=== PATIENT | male | born 1955 | race Caucasian/White ===

== ENCOUNTER 2022-03-13 10:41 | Inpatient (IN) | payer MEDICARE, MEDICAID ==
[~2022-03-13] VITALS: Ht 142.2 cm; Wt 78.9 kg
[2022-03-13] MEDS ORDERED: SODIUM CHLORIDE 0.9% 1000ML BAG (SEPSIS BOLUS) IV ONE (11:15)
[2022-03-13 11:55] LABS: BASOPHILS % 0.4 % (0.0-2.0); EOSINOPHILS % 0.1 % (0.0-5.0); HEMOGLOBIN. 11.2 g/dL (14.0-18.0); LYMPHOCYTES % 19.9 % (20.0-50.0); MEAN CORPUSCULAR HEMOGLOBIN 31.9 pg (28.0-32.0); MEAN CORPUSCULAR VOLUME 94.2 fL (80.0-94.0); MEAN PLATELET VOLUME 8.5 fl (7.4-10.4); NEUTROPHILS % 68.6 % (40.0-76.0); PLATELET 180 x1000/uL (130-400); RED CELL DISTRIBUTION WIDTH 17.9 % (11.6-14.6)
[2022-03-13 12:07] LABS: CHLORIDE 93 mEq/L (98-107)
[2022-03-13] MEDS ORDERED: ACETAMINOPHEN 650MG/20.3ML UDC PO ONE (12:30)
[2022-03-13 12:33] LABS: CLARITY URINE CLEAR (CLEAR); COLOR URINE YELLOW (YELLOW); KETONES URINE NEGATIVE (NEGATIVE); LEUKOCYTE ESTERASE URINE 1+ (NEGATIVE); NITRITE URINE NEGATIVE (NEGATIVE); OCCULT BLOOD URINE 1+ (NEGATIVE); PROTEIN URINE NEGATIVE (NEGATIVE); SPECIFIC GRAVITY URINE 1.016 (1.005-1.030)
[2022-03-13] MEDS ORDERED: CEFTRIAXONE 1 G PREMIX 50 ML IV ONE (14:00)
[2022-03-13 15:08] LABS: BG BASE EXCESS 5.4 mmol/L (-2.0-2.0); BG DEOXYHEMOGLOBIN 0.9 % (0.0-5.0); BG HCO3 ACT 33.8 mmol/L (22.0-26.0); BG METHEMOGLOBIN 0.5 % (0.0-1.5); BG OXYGEN SATURATION 99.1 % (92.0-98.5); BG OXYHEMOGLOBIN 98.6 % (94.0-97.0); BG PCO2 70.6 mmHg (35.0-45.0); BG PH 7.298 (7.350-7.450); BG PO2 198.1 mmHg (75.0-100.0); BG SAMPLE SITE RIGHT RADIAL; BG TOTAL HEMOGLOBIN 11.9 g/dL (12.0-18.0); BG VENT MODE TRACH COLLAR
[2022-03-13 16:30] VITALS: BP 152/102
[2022-03-13] MEDS ORDERED: ACETAMINOPHEN 650MG/20.3ML UDC PO PRN (16:45)
[2022-03-13] MEDS ORDERED: FUROSEMIDE 20MG/2ML VIAL IVP NR (16:45)
[2022-03-13] MEDS ORDERED: IPRATROPIUM/ALBUTEROL 0.5-3(2.5)MG/3ML NEB HHN PRN (16:45)
[2022-03-13] MEDS ORDERED: DIPHENHYDRAMINE 50MG/ML VIAL IV PRN (18:00)
[2022-03-13] MEDS ORDERED: CLONIDINE 0.1MG TABLET PO PRN (18:00)
[2022-03-13] MEDS: INSULIN LISPRO 100 UNITS/ML SUBCUT SCH ×2 (18:00→21:00)
[2022-03-13] MEDS ORDERED: DEXTROSE 50% WATER 50ML SYRINGE IV PRN (18:00)
[2022-03-13] MEDS ORDERED: BLOOD SUGAR DIAGNOSTIC STRIP TEST SCH (18:00)
[2022-03-13] MEDS ORDERED: ACETAMINOPHEN 650MG/20.3ML UDC GT PRN ×2 (18:00)
[2022-03-13] MEDS ORDERED: IPRATROPIUM/ALBUTEROL 0.5-3(2.5)MG/3ML NEB NEB PRN (18:00)
[2022-03-13] MEDS ORDERED: GUAIFENESIN 200MG/10ML SUGAR FREE UDC GT PRN (18:00)
[2022-03-13] MEDS ORDERED: ONDANSETRON HCL 4MG/2ML INJ IV PRN (18:00)
[2022-03-13 18:03] VITALS: BP 145/101
[2022-03-13] MEDS ORDERED: HYDRALAZINE 20MG/ML VIAL IV PRN (18:15)
[2022-03-13] MEDS: BLOOD SUGAR DIAGNOSTIC STRIP TEST SCH ×2 (18:47→21:26)
[2022-03-13] MEDS: ENOXAPARIN 40MG/0.4ML SYR SUBCUT SCH (18:57)
[2022-03-13] MEDS ORDERED: IPRATROPIUM/ALBUTEROL 0.5-3(2.5)MG/3ML NEB HHN SCH (20:00)
[2022-03-13] MEDS ORDERED: LEVOFLOXACIN 750MG PREMIX 150 ML IV SCH (20:00)
[2022-03-13 20:01] VITALS: BP 142/69
[2022-03-13] MEDS: IPRATROPIUM/ALBUTEROL 0.5-3(2.5)MG/3ML NEB HHN SCH (20:52)
[2022-03-13] MEDS: LEVETIRACETAM 500MG/5ML CUP GT SCH (21:25)
[2022-03-13] MEDS: SODIUM CHLORIDE 0.9% INJ 3ML FLUSH IVF SCH (21:27)
[2022-03-13 22:01] VITALS: BP 130/63
[2022-03-14] VITALS (12 sets, daily range): BP systolic 118–141; BP diastolic 64–99
[2022-03-14] MEDS: IPRATROPIUM/ALBUTEROL 0.5-3(2.5)MG/3ML NEB HHN SCH ×4 (00:38→20:13)
[2022-03-14] MEDS: ACETYLCYSTEINE 100MG/ML 10% VIAL 4ML INH SCH ×3 (00:38→13:28)
[2022-03-14] MEDS: SODIUM CHLORIDE 0.9% INJ 3ML FLUSH IVF SCH ×3 (06:07→20:58)
[2022-03-14 06:56] LABS: BASOPHILS % 0.5 % (0.0-2.0); EOSINOPHILS % 0.5 % (0.0-5.0); HEMOGLOBIN. 11.1 g/dL (14.0-18.0); LYMPHOCYTES % 14.2 % (20.0-50.0); MEAN CORPUSCULAR HEMOGLOBIN 31.9 pg (28.0-32.0); MEAN CORPUSCULAR VOLUME 94.5 fL (80.0-94.0); MEAN PLATELET VOLUME 8.4 fl (7.4-10.4); MONOCYTES % 9.5 % (2.0-8.0); NEUTROPHILS % 75.3 % (40.0-76.0); PLATELET 159 x1000/uL (130-400); RED BLOOD CELL COUNT 3.49 mill/uL (4.7-6.1)
[2022-03-14 07:04] LABS: CHLORIDE 99 mEq/L (98-107)
[2022-03-14 07:21] LABS: PHOSPHORUS 1.3 mg/dL (2.5-4.9)
[2022-03-14] MEDS: BLOOD SUGAR DIAGNOSTIC STRIP TEST SCH ×3 (07:30→17:34)
[2022-03-14] MEDS: INSULIN LISPRO 100 UNITS/ML SUBCUT SCH ×3 (08:00→17:47)
[2022-03-14 08:09] LABS: BG BASE EXCESS 14.2 mmol/L (-2.0-2.0); BG CARBOXYHEMOGLOBIN 0.1 % (0.5-1.5); BG DEOXYHEMOGLOBIN 4.9 % (0.0-5.0); BG FRACTION INSPIRED OXYGEN 40; BG HCO3 ACT 41.1 mmol/L (22.0-26.0); BG METHEMOGLOBIN 0.3 % (0.0-1.5); BG OXYGEN SATURATION 95.1 % (92.0-98.5); BG OXYHEMOGLOBIN 94.7 % (94.0-97.0); BG PCO2 63.8 mmHg (35.0-45.0); BG PH 7.427 (7.350-7.450); BG PO2 77.5 mmHg (75.0-100.0); BG SAMPLE SITE RIGHT RADIAL; BG TOTAL HEMOGLOBIN 11.7 g/dL (12.0-18.0); BG VENT MODE COOL AEROSOL
[2022-03-14] MEDS: LEVETIRACETAM 500MG/5ML CUP GT SCH ×2 (09:09→20:57)
[2022-03-14] MEDS: LEVOTHYROXINE SODIUM 125MCG TABLET GT SCH (09:10)
[2022-03-14] MEDS: SPIRONOLACTONE 25MG TABLET GT SCH (09:10)
[2022-03-14] MEDS: FUROSEMIDE 20MG/2ML VIAL IVP SCH (09:10)
[2022-03-14] MEDS: LEVOFLOXACIN 500MG PREMIX 100 ML IV SCH (13:04)
[2022-03-14] MEDS ORDERED: POTASSIUM PHOS,M-BASIC-D-BASIC 20 MMOL in DEXT 5% WATER 243.3333 ML IV NR (14:00)
[2022-03-14] MEDS: ENOXAPARIN 40MG/0.4ML SYR SUBCUT SCH (17:11)
[2022-03-15] VITALS (12 sets, daily range): BP systolic 121–159; BP diastolic 57–80
[2022-03-15] MEDS: IPRATROPIUM/ALBUTEROL 0.5-3(2.5)MG/3ML NEB HHN SCH ×4 (00:34→20:59)
[2022-03-15] MEDS: ACETYLCYSTEINE 100MG/ML 10% VIAL 4ML INH SCH ×3 (00:35→13:55)
[2022-03-15] MEDS: BLOOD SUGAR DIAGNOSTIC STRIP TEST SCH ×4 (00:50→17:58)
[2022-03-15] MEDS: INSULIN LISPRO 100 UNITS/ML SUBCUT SCH ×4 (07:00→17:58)
[2022-03-15] MEDS: SODIUM CHLORIDE 0.9% INJ 3ML FLUSH IVF SCH ×2 (07:00→14:00)
[2022-03-15] MEDS: FUROSEMIDE 20MG/2ML VIAL IVP SCH (08:47)
[2022-03-15] MEDS: LEVETIRACETAM 500MG/5ML CUP GT SCH ×2 (08:47→21:39)
[2022-03-15] MEDS: LEVOTHYROXINE SODIUM 125MCG TABLET GT SCH (08:47)
[2022-03-15] MEDS: SPIRONOLACTONE 25MG TABLET GT SCH (08:47)
[2022-03-15] MEDS: LEVOFLOXACIN 500MG PREMIX 100 ML IV SCH (14:00)
[2022-03-15] MEDS: ENOXAPARIN 40MG/0.4ML SYR SUBCUT SCH (17:58)
[2022-03-16] VITALS (12 sets, daily range): BP systolic 107–133; BP diastolic 53–74
[2022-03-16] MEDS: IPRATROPIUM/ALBUTEROL 0.5-3(2.5)MG/3ML NEB HHN SCH ×4 (01:00→20:35)
[2022-03-16] MEDS: ACETYLCYSTEINE 100MG/ML 10% VIAL 4ML INH SCH ×3 (01:00→14:40)
[2022-03-16] MEDS: LEVETIRACETAM 500MG/5ML CUP GT SCH ×2 (08:17→20:41)
[2022-03-16] MEDS: FUROSEMIDE 20MG/2ML VIAL IVP SCH (08:17)
[2022-03-16] MEDS: LEVOTHYROXINE SODIUM 125MCG TABLET GT SCH (08:17)
[2022-03-16] MEDS: SPIRONOLACTONE 25MG TABLET GT SCH (08:17)
[2022-03-16] MEDS: BLOOD SUGAR DIAGNOSTIC STRIP TEST SCH ×2 (11:34→17:04)
[2022-03-16] MEDS: INSULIN LISPRO 100 UNITS/ML SUBCUT SCH ×2 (12:33→17:04)
[2022-03-16] MEDS: LEVOFLOXACIN 500MG PREMIX 100 ML IV SCH (13:06)
[2022-03-16] MEDS: SODIUM CHLORIDE 0.9% INJ 3ML FLUSH IVF SCH ×2 (15:24→22:00)
[2022-03-16] MEDS: ENOXAPARIN 40MG/0.4ML SYR SUBCUT SCH (17:13)
[2022-03-17] VITALS (14 sets, daily range): BP systolic 97–131; BP diastolic 56–72
[2022-03-17] MEDS: IPRATROPIUM/ALBUTEROL 0.5-3(2.5)MG/3ML NEB HHN SCH ×4 (00:52→20:26)
[2022-03-17] MEDS: ACETYLCYSTEINE 100MG/ML 10% VIAL 4ML INH SCH ×3 (00:52→14:00)
[2022-03-17] MEDS: INSULIN LISPRO 100 UNITS/ML SUBCUT SCH ×4 (01:39→17:13)
[2022-03-17] MEDS: SODIUM CHLORIDE 0.9% INJ 3ML FLUSH IVF SCH ×3 (06:00→21:56)
[2022-03-17] MEDS: BLOOD SUGAR DIAGNOSTIC STRIP TEST SCH ×4 (07:00→17:05)
[2022-03-17] MEDS: LEVETIRACETAM 500MG/5ML CUP GT SCH ×2 (08:34→21:43)
[2022-03-17] MEDS: SPIRONOLACTONE 25MG TABLET GT SCH (08:35)
[2022-03-17] MEDS: LEVOTHYROXINE SODIUM 125MCG TABLET GT SCH (08:35)
[2022-03-17] MEDS: FUROSEMIDE 20MG/2ML VIAL IVP SCH (08:35)
[2022-03-17] MEDS: LEVOFLOXACIN 500MG PREMIX 100 ML IV SCH (13:13)
[2022-03-17] MEDS: CEFEPIME 1,000 MG in DEXTROSE 5% WATER 50 ML IV SCH (17:13)
[2022-03-17] MEDS: ENOXAPARIN 40MG/0.4ML SYR SUBCUT SCH (17:13)
[2022-03-18] VITALS: BP 112/64
[2022-03-18] MEDS: BLOOD SUGAR DIAGNOSTIC STRIP TEST SCH ×2 (00:26→06:00)
[2022-03-18] MEDS: INSULIN LISPRO 100 UNITS/ML SUBCUT SCH ×2 (00:30→06:00)
[2022-03-18] MEDS: ACETYLCYSTEINE 100MG/ML 10% VIAL 4ML INH SCH ×2 (01:04→08:50)
[2022-03-18] MEDS: IPRATROPIUM/ALBUTEROL 0.5-3(2.5)MG/3ML NEB HHN SCH ×2 (01:05→08:50)
[2022-03-18 02:00] VITALS: BP 102/54
[2022-03-18 04:00] VITALS: BP 97/61
[2022-03-18 06:00] VITALS: BP 97/55
[2022-03-18] MEDS: SODIUM CHLORIDE 0.9% INJ 3ML FLUSH IVF SCH (06:48)
[2022-03-18] MEDS: CEFEPIME 1,000 MG in DEXTROSE 5% WATER 50 ML IV SCH (06:48)
[2022-03-18 08:00] VITALS: BP 106/48
[2022-03-18] MEDS: LEVOTHYROXINE SODIUM 125MCG TABLET GT SCH (08:19)
[2022-03-18] MEDS: LEVETIRACETAM 500MG/5ML CUP GT SCH (08:19)
[2022-03-18] MEDS: SPIRONOLACTONE 25MG TABLET GT SCH (08:19)
[2022-03-18] MEDS: FUROSEMIDE 20MG/2ML VIAL IVP SCH (08:19)
[2022-03-18 09:45] VITALS: BP 91/57
== END 2022-03-18 17:33 | disposition home or self-care (01) | DRG 871 ==
LOC: EDBD 11:08 → ER 11:08 → 5EST 14:19 → EDBEDREQTM 14:35 → EDBEDREQ 14:35 → ENRESERV 14:45
PROVIDERS: ADMIT Internal Medicine; ATTEND Internal Medicine
DX: A41.9 Sepsis, unspecified organism (principal); J15.1 Pneumonia due to Pseudomonas; J96.20 Acute and chronic respiratory failure, unspecified whether with hypoxia or hypercapnia; N39.0 Urinary tract infection, site not specified; G40.909 Epilepsy, unspecified, not intractable, without status epilepticus; I50.9 Heart failure, unspecified; I11.0 Hypertensive heart disease with heart failure; E11.9 Type 2 diabetes mellitus without complications; E03.9 Hypothyroidism, unspecified; R13.10 Dysphagia, unspecified; Z20.822 Contact with and (suspected) exposure to COVID-19; Z93.0 Tracheostomy status; Q90.9 Down syndrome, unspecified; Z79.4 Long term (current) use of insulin; Z93.1 Gastrostomy status; Z86.711 Personal history of pulmonary embolism
CPT/HCPCS: 36415; 36600; 71045; 80048; 80053; 81003; 82375; 82805; 82962; 83036; 83605; 83735; 84100; 84443; 85025; 87070; 87077; 87186; 87426; 93005; 94640; 99291; C9803; J0692; J0696; J1650; J1815; J1940; J1956; J3490; J7030; J7060; J7608; A4315

== ENCOUNTER 2022-03-19 15:36 | Inpatient (IN) | payer MEDICARE, MEDICAID ==
[~2022-03-19] VITALS: Ht 172.7 cm; Wt 61.2 kg
[2022-03-19 16:26] LABS: BASOPHILS % 0.7 % (0.0-2.0); EOSINOPHILS % 0.8 % (0.0-5.0); HEMOGLOBIN. 12.8 g/dL (14.0-18.0); LYMPHOCYTES % 19.6 % (20.0-50.0); MEAN CORPUSCULAR HEMOGLOBIN 31.4 pg (28.0-32.0); MEAN CORPUSCULAR VOLUME 95.4 fL (80.0-94.0); MONOCYTES % 8.9 % (2.0-8.0); PLATELET 335 x1000/uL (130-400); RED BLOOD CELL COUNT 4.09 mill/uL (4.7-6.1)
[2022-03-19 16:48] LABS: CHLORIDE 95 mEq/L (98-107)
[2022-03-19 16:58] LABS: CLARITY URINE CLEAR (CLEAR); COLOR URINE YELLOW (YELLOW); KETONES URINE NEGATIVE (NEGATIVE); LEUKOCYTE ESTERASE URINE TRACE (NEGATIVE); NITRITE URINE NEGATIVE (NEGATIVE); OCCULT BLOOD URINE NEGATIVE (NEGATIVE); PH URINE 6.5 (4.5-8.0); PROTEIN URINE NEGATIVE (NEGATIVE); SPECIFIC GRAVITY URINE 1.015 (1.005-1.030); UROBILINOGEN URINE 0.2 E.U./dL (0.2-1.0)
[2022-03-19] MEDS ORDERED: PIPERACILLIN/TAZ 3.375G PREMIX 50 ML IV NR (17:30)
[2022-03-19] MEDS ORDERED: VANCOMYCIN 1,000 MG in DEXT 5% WATER 250 ML IV NR (18:00)
[2022-03-19] MEDS ORDERED: SODIUM CHLORIDE 0.9% 1000ML BAG (SEPSIS BOLUS) IV NR (18:45)
[2022-03-20] VITALS (13 sets, daily range): BP systolic 91–132; BP diastolic 15–114
[2022-03-20] MEDS ORDERED: MORPHINE SULFATE 2 MG/ML CPJ (NOT FOR IM USE) IV PRN (00:30)
[2022-03-20] MEDS ORDERED: NALOXONE HCL 0.4MG/ML VIAL IV PRN (00:30)
[2022-03-20] MEDS ORDERED: DEXTROSE 50% WATER 50ML SYRINGE IV PRN (01:00)
[2022-03-20] MEDS: LORAZEPAM 1MG TABLET PO PRN ×2 (01:13→15:22)
[2022-03-20] MEDS ORDERED: MOM MT (01:32)
[2022-03-20] MEDS ORDERED: LEVO125T8 GT (01:33)
[2022-03-20] MEDS ORDERED: OMEP20CA14 PO (01:33)
[2022-03-20] MEDS ORDERED: IPRA3AMP9 NEB (01:33)
[2022-03-20] MEDS ORDERED: FLUD0.1T MT (01:34)
[2022-03-20] MEDS ORDERED: FURO20TA4 MT (01:37)
[2022-03-20] MEDS ORDERED: FOLI-43 MT (01:37)
[2022-03-20] MEDS ORDERED: THIA100T72 MT (01:37)
[2022-03-20] MEDS ORDERED: POTA20LI52 MT (01:38)
[2022-03-20] MEDS ORDERED: BISA-186 RC (02:02)
[2022-03-20] MEDS ORDERED: ACET160S MT (02:02)
[2022-03-20] MEDS ORDERED: DOCU50LI25 MT (02:02)
[2022-03-20] MEDS ORDERED: INSNOV SUBCUT (02:02)
[2022-03-20] MEDS ORDERED: ATOR10TA69 GT (02:02)
[2022-03-20] MEDS ORDERED: CHOL400D7 MT (02:02)
[2022-03-20] MEDS ORDERED: INSU100I24 SQ (02:02)
[2022-03-20 05:19] LABS: BASOPHILS % 0.3 % (0.0-2.0); EOSINOPHILS % 0.3 % (0.0-5.0); HEMATOCRIT. 35.6 % (42.0-52.0); HEMOGLOBIN. 11.9 g/dL (14.0-18.0); MEAN CORPUSCULAR HEMOGLOBIN 31.8 pg (28.0-32.0); MEAN CORPUSCULAR VOLUME 95.5 fL (80.0-94.0); MEAN PLATELET VOLUME 8.2 fl (7.4-10.4); MONOCYTES % 7.4 % (2.0-8.0); PLATELET 283 x1000/uL (130-400); RED BLOOD CELL COUNT 3.73 mill/uL (4.7-6.1); RED CELL DISTRIBUTION WIDTH 19.1 % (11.6-14.6)
[2022-03-20 05:47] LABS: CHLORIDE 94 mEq/L (98-107)
[2022-03-20] MEDS: INSULIN LISPRO 100 UNITS/ML SUBCUT SCH ×3 (06:00→18:00)
[2022-03-20] MEDS: BLOOD SUGAR DIAGNOSTIC STRIP TEST SCH ×3 (06:00→18:37)
[2022-03-20] MEDS: ENOXAPARIN 40MG/0.4ML SYR SUBCUT SCH (08:53)
[2022-03-20] MEDS ORDERED: BISACODYL 10MG SUPP PR PRN (13:45)
[2022-03-20] MEDS ORDERED: IPRATROPIUM/ALBUTEROL 0.5-3(2.5)MG/3ML NEB HHN PRN (15:15)
[2022-03-20] MEDS ORDERED: HYDRALAZINE 20MG/ML VIAL IV PRN (15:15)
[2022-03-20] MEDS: DEXT 5%/0.45% NACL 1000ML 1,000 ML IV SCH (15:30)
[2022-03-20] MEDS: CEFEPIME 1,000 MG in DEXTROSE 5% WATER 50 ML IV SCH (17:54)
[2022-03-20] MEDS: IPRATROPIUM/ALBUTEROL 0.5-3(2.5)MG/3ML NEB HHN SCH (18:00)
[2022-03-20] MEDS: METRONIDAZOLE 500 MG PREMIX 100 ML IV SCH (18:40)
[2022-03-20] MEDS ORDERED: NA PHOS,M-B/NA PHOS,DI-BA ENEMA 118ML PR NR (20:00)
[2022-03-20] MEDS: LEVETIRACETAM 250 MG in SODIUM CHLORIDE 0.9% 100 ML IV SCH (20:53)
[2022-03-20] MEDS: ACETYLCYSTEINE 100MG/ML 10% VIAL 4ML INH SCH (22:00)
[2022-03-20] MEDS ORDERED: BISACODYL 10MG SUPP PR NR (23:00)
[2022-03-21] VITALS (8 sets, daily range): BP systolic 107–140; BP diastolic 40–73
[2022-03-21] MEDS: BLOOD SUGAR DIAGNOSTIC STRIP TEST SCH ×4 (00:32→18:25)
[2022-03-21] MEDS: DEXT 5%/0.45% NACL 1000ML 1,000 ML IV SCH ×3 (00:33→16:41)
[2022-03-21] MEDS: INSULIN LISPRO 100 UNITS/ML SUBCUT SCH ×4 (06:00→18:00)
[2022-03-21 06:24] LABS: BASOPHILS % 0.4 % (0.0-2.0); EOSINOPHILS % 1.5 % (0.0-5.0); HEMATOCRIT. 32.8 % (42.0-52.0); HEMOGLOBIN. 11.1 g/dL (14.0-18.0); LYMPHOCYTES % 16.5 % (20.0-50.0); MEAN CORPUSCULAR HEMOGLOBIN 32.3 pg (28.0-32.0); MEAN CORPUSCULAR VOLUME 95.3 fL (80.0-94.0); MEAN PLATELET VOLUME 7.9 fl (7.4-10.4); NEUTROPHILS % 71.6 % (40.0-76.0); PLATELET 244 x1000/uL (130-400); RED BLOOD CELL COUNT 3.44 mill/uL (4.7-6.1); RED CELL DISTRIBUTION WIDTH 18.4 % (11.6-14.6)
[2022-03-21] MEDS: METRONIDAZOLE 500 MG PREMIX 100 ML IV SCH ×2 (06:39→16:40)
[2022-03-21 06:43] LABS: CHLORIDE 103 mEq/L (98-107)
[2022-03-21] MEDS: IPRATROPIUM/ALBUTEROL 0.5-3(2.5)MG/3ML NEB HHN SCH ×4 (07:39→21:10)
[2022-03-21] MEDS: ACETYLCYSTEINE 100MG/ML 10% VIAL 4ML INH SCH ×2 (07:40→13:28)
[2022-03-21] MEDS ORDERED: NA PHOS,M-B/NA PHOS,DI-BA ENEMA 118ML PR NR (09:00)
[2022-03-21] MEDS: CEFEPIME 1,000 MG in DEXTROSE 5% WATER 50 ML IV SCH (09:53)
[2022-03-21] MEDS: ENOXAPARIN 40MG/0.4ML SYR SUBCUT SCH (09:53)
[2022-03-21] MEDS: LEVETIRACETAM 250 MG in SODIUM CHLORIDE 0.9% 100 ML IV SCH (10:41)
[2022-03-21] MEDS ORDERED: MAGNESIUM CITRATE 300ML SOLUTION GT NR (18:00)
[2022-03-22] VITALS (11 sets, daily range): BP systolic 116–136; BP diastolic 57–85
[2022-03-22] MEDS: IPRATROPIUM/ALBUTEROL 0.5-3(2.5)MG/3ML NEB HHN SCH ×4 (01:35→20:17)
[2022-03-22] MEDS: ACETYLCYSTEINE 100MG/ML 10% VIAL 4ML INH SCH ×2 (01:37→08:49)
[2022-03-22] MEDS: INSULIN LISPRO 100 UNITS/ML SUBCUT SCH ×5 (06:00→23:40)
[2022-03-22] MEDS: BLOOD SUGAR DIAGNOSTIC STRIP TEST SCH ×3 (06:00→17:02)
[2022-03-22] MEDS: CEFEPIME 1,000 MG in DEXTROSE 5% WATER 50 ML IV SCH ×2 (08:54→20:09)
[2022-03-22] MEDS: LEVETIRACETAM 250 MG in SODIUM CHLORIDE 0.9% 100 ML IV SCH ×2 (08:55→20:09)
[2022-03-22] MEDS: ENOXAPARIN 40MG/0.4ML SYR SUBCUT SCH (08:55)
[2022-03-22] MEDS: METRONIDAZOLE 500 MG PREMIX 100 ML IV SCH ×2 (13:38→21:43)
[2022-03-22] MEDS: LACTULOSE 20G/30ML UDC GT SCH ×2 (13:38→21:44)
[2022-03-22] MEDS: DEXT 5%/0.45% NACL 1000ML 1,000 ML IV SCH (17:01)
[2022-03-23] VITALS (9 sets, daily range): BP systolic 117–138; BP diastolic 56–78
[2022-03-23] MEDS: ACETYLCYSTEINE 100MG/ML 10% VIAL 4ML INH SCH ×2 (02:14→09:38)
[2022-03-23] MEDS: IPRATROPIUM/ALBUTEROL 0.5-3(2.5)MG/3ML NEB HHN SCH ×4 (02:14→20:39)
[2022-03-23] MEDS: LACTULOSE 20G/30ML UDC GT SCH ×3 (05:58→21:37)
[2022-03-23 06:00] LABS: HEMATOCRIT. 35.3 % (42.0-52.0); HEMOGLOBIN. 11.8 g/dL (14.0-18.0); MEAN CORPUSCULAR HEMOGLOBIN 31.9 pg (28.0-32.0); MEAN CORPUSCULAR VOLUME 95.2 fL (80.0-94.0); MEAN PLATELET VOLUME 7.8 fl (7.4-10.4); PLATELET 265 x1000/uL (130-400); RED BLOOD CELL COUNT 3.71 mill/uL (4.7-6.1); RED CELL DISTRIBUTION WIDTH 18.9 % (11.6-14.6)
[2022-03-23] MEDS: INSULIN LISPRO 100 UNITS/ML SUBCUT SCH ×3 (06:00→17:53)
[2022-03-23] MEDS: METRONIDAZOLE 500 MG PREMIX 100 ML IV SCH ×3 (06:00→22:53)
[2022-03-23] MEDS: DEXT 5%/0.45% NACL 1000ML 1,000 ML IV SCH ×2 (06:18→13:22)
[2022-03-23] MEDS: BLOOD SUGAR DIAGNOSTIC STRIP TEST SCH ×4 (06:39→17:52)
[2022-03-23] MEDS: CEFEPIME 1,000 MG in DEXTROSE 5% WATER 50 ML IV SCH ×2 (09:25→21:16)
[2022-03-23] MEDS: LEVETIRACETAM 250 MG in SODIUM CHLORIDE 0.9% 100 ML IV SCH ×2 (09:25→21:16)
[2022-03-23] MEDS: ENOXAPARIN 40MG/0.4ML SYR SUBCUT SCH (09:25)
[2022-03-23 13:53] LABS: PLATELET ESTIMATE NORMAL
[2022-03-23] MEDS ORDERED: ENOXAPARIN 30MG/0.3ML SYR SUBCUT SCH (21:00)
[2022-03-23] MEDS ORDERED: NA PHOS,M-B/NA PHOS,DI-BA ENEMA 118ML PR NR (21:15)
[2022-03-23] MEDS ORDERED: BISACODYL 5MG TABLET PO NR (21:15)
[2022-03-24] VITALS (8 sets, daily range): BP systolic 107–143; BP diastolic 54–91
[2022-03-24] MEDS: BLOOD SUGAR DIAGNOSTIC STRIP TEST SCH ×5 (00:29→23:31)
[2022-03-24] MEDS: ACETYLCYSTEINE 100MG/ML 10% VIAL 4ML INH SCH ×3 (01:55→14:00)
[2022-03-24] MEDS: IPRATROPIUM/ALBUTEROL 0.5-3(2.5)MG/3ML NEB HHN SCH ×4 (01:55→20:38)
[2022-03-24] MEDS: METRONIDAZOLE 500 MG PREMIX 100 ML IV SCH ×3 (05:26→23:13)
[2022-03-24] MEDS: LACTULOSE 20G/30ML UDC GT SCH ×3 (05:26→23:13)
[2022-03-24] MEDS: INSULIN LISPRO 100 UNITS/ML SUBCUT SCH ×5 (05:29→23:43)
[2022-03-24 06:39] LABS: INR 1.1; PROTHROMBIN TIME 11.9 sec (9.6-11.0)
[2022-03-24 06:44] LABS: BASOPHILS % 0.4 % (0.0-2.0); EOSINOPHILS % 0.9 % (0.0-5.0); HEMATOCRIT. 37.9 % (42.0-52.0); HEMOGLOBIN. 12.5 g/dL (14.0-18.0); LYMPHOCYTES % 16.1 % (20.0-50.0); MEAN CORPUSCULAR HEMOGLOBIN 31.6 pg (28.0-32.0); MEAN CORPUSCULAR VOLUME 96.4 fL (80.0-94.0); MEAN PLATELET VOLUME 7.7 fl (7.4-10.4); MONOCYTES % 6.3 % (2.0-8.0); NEUTROPHILS % 76.3 % (40.0-76.0); PLATELET 292 x1000/uL (130-400); RED BLOOD CELL COUNT 3.94 mill/uL (4.7-6.1); RED CELL DISTRIBUTION WIDTH 18.6 % (11.6-14.6)
[2022-03-24 06:57] LABS: CHLORIDE 102 mEq/L (98-107)
[2022-03-24 07:11] LABS: TOTAL IRON BINDING CAPACITY 206 ug/dL (250-450)
[2022-03-24 07:14] LABS: FOLIC ACID (FOLATE) SERUM 17.6 ng/mL (>5.38)
[2022-03-24] MEDS: CEFEPIME 1,000 MG in DEXTROSE 5% WATER 50 ML IV SCH ×2 (08:38→20:35)
[2022-03-24] MEDS: DEXT 5%/0.45% NACL 1000ML 1,000 ML IV SCH ×2 (09:09→23:13)
[2022-03-24] MEDS: LEVETIRACETAM 250 MG in SODIUM CHLORIDE 0.9% 100 ML IV SCH ×2 (12:37→20:35)
[2022-03-24 15:29] LABS: HEMATOCRIT 35.5 % (42.0-52.0); HEMOGLOBIN 11.7 g/dL (14.0-18.0)
[2022-03-24] MEDS ORDERED: PROPOFOL 200MG/20ML VIAL IV ONE (16:17)
[2022-03-24] MEDS ORDERED: DEXAMETHASONE 4MG/ML 1ML VIAL ONE (16:20)
[2022-03-24] MEDS ORDERED: ONDANSETRON HCL 4MG/2ML INJ ONE (16:20)
[2022-03-24] MEDS: METOCLOPRAMIDE HCL 10MG/2ML VIAL IV SCH ×2 (18:00→23:41)
[2022-03-25] VITALS (12 sets, daily range): BP systolic 92–147; BP diastolic 46–79
[2022-03-25] MEDS: IPRATROPIUM/ALBUTEROL 0.5-3(2.5)MG/3ML NEB HHN SCH ×4 (03:26→20:02)
[2022-03-25] MEDS: ACETYLCYSTEINE 100MG/ML 10% VIAL 4ML INH SCH ×3 (03:27→16:44)
[2022-03-25] MEDS: BLOOD SUGAR DIAGNOSTIC STRIP TEST SCH ×4 (06:33→23:42)
[2022-03-25] MEDS: INSULIN LISPRO 100 UNITS/ML SUBCUT SCH ×4 (06:35→23:42)
[2022-03-25] MEDS: METRONIDAZOLE 500 MG PREMIX 100 ML IV SCH ×2 (06:35→13:19)
[2022-03-25] MEDS: LACTULOSE 20G/30ML UDC GT SCH ×3 (06:36→20:28)
[2022-03-25] MEDS: METOCLOPRAMIDE HCL 10MG/2ML VIAL IV SCH ×4 (06:36→23:42)
[2022-03-25] MEDS: CEFEPIME 1,000 MG in DEXTROSE 5% WATER 50 ML IV SCH ×2 (09:05→20:29)
[2022-03-25] MEDS: LEVETIRACETAM 250 MG in SODIUM CHLORIDE 0.9% 100 ML IV SCH ×2 (09:05→22:10)
[2022-03-25 10:39] LABS: HEMOGLOBIN 11.9 g/dL (14.0-18.0); MEAN CORPUSCULAR HEMOGLOBIN 31.9 pg (28.0-32.0); MEAN CORPUSCULAR VOLUME 96.4 fL (80.0-94.0); PLATELET 260 x1000/uL (130-400); RED BLOOD CELL COUNT 3.73 mill/uL (4.7-6.1); RED CELL DISTRIBUTION WIDTH 18.5 % (11.6-14.6)
[2022-03-25 10:51] LABS: CHLORIDE 107 mEq/L (98-107)
[2022-03-25] MEDS: DEXT 5%/0.45% NACL 1000ML 1,000 ML IV SCH ×2 (13:19→23:43)
[2022-03-26] VITALS (12 sets, daily range): BP systolic 120–155; BP diastolic 59–83
[2022-03-26] MEDS: ACETYLCYSTEINE 100MG/ML 10% VIAL 4ML INH SCH (02:50)
[2022-03-26] MEDS: IPRATROPIUM/ALBUTEROL 0.5-3(2.5)MG/3ML NEB HHN SCH ×3 (02:58→14:03)
[2022-03-26] MEDS: INSULIN LISPRO 100 UNITS/ML SUBCUT SCH ×3 (05:14→18:00)
[2022-03-26] MEDS: BLOOD SUGAR DIAGNOSTIC STRIP TEST SCH ×3 (05:14→18:04)
[2022-03-26] MEDS: METOCLOPRAMIDE HCL 10MG/2ML VIAL IV SCH ×3 (05:14→18:56)
[2022-03-26] MEDS: LACTULOSE 20G/30ML UDC GT SCH ×2 (05:14→13:19)
[2022-03-26 06:07] LABS: CHLORIDE 104 mEq/L (98-107)
[2022-03-26 06:25] LABS: BASOPHILS % 0.6 % (0.0-2.0); EOSINOPHILS % 0.4 % (0.0-5.0); HEMATOCRIT. 35.4 % (42.0-52.0); HEMOGLOBIN. 11.9 g/dL (14.0-18.0); MEAN CORPUSCULAR VOLUME 95.5 fL (80.0-94.0); MEAN PLATELET VOLUME 7.7 fl (7.4-10.4); MONOCYTES % 12.2 % (2.0-8.0); NEUTROPHILS % 64.8 % (40.0-76.0); PLATELET 259 x1000/uL (130-400); RED BLOOD CELL COUNT 3.71 mill/uL (4.7-6.1)
[2022-03-26] MEDS: LEVETIRACETAM 250 MG in SODIUM CHLORIDE 0.9% 100 ML IV SCH (10:19)
[2022-03-26] MEDS: DEXT 5%/0.45% NACL 1000ML 1,000 ML IV SCH (13:19)
== END 2022-03-26 19:00 | DRG 871 ==
LOC: ER 15:36 → 5EST 18:48 → ENRESERV 22:30 → ER 23:17 → CANBEDREQ 23:27 → 5EST 03-20 00:16
PROVIDERS: ADMIT Internal Medicine; ATTEND Internal Medicine
PROC: 0DP68UZ Removal of Feeding Device from Stomach, Via Natural or Artificial Opening Endoscopic (ICD-10-PCS; principal; 2022-03-25)
PROC: 0DH63UZ Insertion of Feeding Device into Stomach, Percutaneous Approach (ICD-10-PCS; 2022-03-25)
PROC: 0DB68ZX Excision of Stomach, Via Natural or Artificial Opening Endoscopic, Diagnostic (ICD-10-PCS; 2022-03-25)
DX: A41.52 Sepsis due to Pseudomonas (principal); J15.1 Pneumonia due to Pseudomonas; J15.6 Pneumonia due to other Gram-negative bacteria; J69.0 Pneumonitis due to inhalation of food and vomit; J96.20 Acute and chronic respiratory failure, unspecified whether with hypoxia or hypercapnia; E87.1 Hypo-osmolality and hyponatremia; K92.2 Gastrointestinal hemorrhage, unspecified; K92.0 Hematemesis; K94.23 Gastrostomy malfunction; E11.9 Type 2 diabetes mellitus without complications; D64.9 Anemia, unspecified; E03.9 Hypothyroidism, unspecified; Q90.9 Down syndrome, unspecified; I50.9 Heart failure, unspecified; Z86.711 Personal history of pulmonary embolism; I11.0 Hypertensive heart disease with heart failure; G40.909 Epilepsy, unspecified, not intractable, without status epilepticus; E87.5 Hyperkalemia; K56.41 Fecal impaction; R65.20 Severe sepsis without septic shock; R13.10 Dysphagia, unspecified; Z20.822 Contact with and (suspected) exposure to COVID-19; Z87.440 Personal history of urinary (tract) infections
CPT/HCPCS: 36415; 71045; 74018; 74176; 80048; 80053; 81003; 82607; 82728; 82746; 82962; 83036; 83540; 83550; 83605; 83880; 84145; 85014; 85018; 85025; 85027; 85044; 87070; 87077; 87186; 87426; 88305; 88312; 88313; 93005; 94640; 94667; 97161; 99291; C9803; J0692; J1100; J1650; J1815; J1953; J2405; J2543; J2704; J2765; J3370; J3490; J7030; J7050; J7060; J7608